=== PATIENT | female | born 1960 | race Caucasian/White ===

== ENCOUNTER → 2019-04-26 | Outpatient (CLI) | payer BC ==
[2019-04-27 13:46] LABS: Stool Occult Bld Immuno 1 Negative (NEGATIVE); Stool Occult Bld Immuno 2 Negative (NEGATIVE)
== END | disposition home or self-care (01) ==
LOC: LAB EV 12:19
PROVIDERS: Internal Medicine Gastroenterology
DX: Z09 Encounter for follow-up examination after completed treatment for conditions other than malignant neoplasm (principal); Z86.010 Personal history of colon polyps; Z83.71 Family history of colonic polyps
CPT/HCPCS: G0328

== ENCOUNTER → 2021-05-28 | Outpatient (CLI) | payer BC | LOC: LAB 16:29 → LAB SHORT 16:29 | DX: D48.5 Neoplasm of uncertain behavior of skin (principal); L30.8 Other specified dermatitis | CPT/HCPCS: 88305; 88312 ==

== ENCOUNTER → 2023-05-26 | Outpatient (CLI) | payer BC | LOC: PLD 12:00 → LAB SHORT 12:00 | DX: D48.5 Neoplasm of uncertain behavior of skin (principal) | CPT/HCPCS: 88305 ==